=== PATIENT | male | born 1970 | race Caucasian/White ===

== ENCOUNTER 2020-05-18 19:31 | Emergency (ER) | payer BC ==
[~2020-05-18] VITALS: Ht 170.2 cm; Wt 83.5 kg
[2020-05-18 20:31] LABS: ABSOLUTE BASOPHILS 0.1 thou/uL (0.0-0.2); ABSOLUTE EOSINOPHILS 0.3 thou/uL (0.0-0.7); ABSOLUTE LYMPHOCYTES 1.8 thou/uL (0.8-5.3); ABSOLUTE MONOCYTES 0.8 thou/uL (0.0-1.2); ABSOLUTE NEUTROPHILS 6.6 thou/uL (1.6-8.1); BASOPHILS 0.8 %; EOSINOPHILS 3.2 %; HEMATOCRIT 40.1 % (42.0-52.0); HEMOGLOBIN 13.4 gm/dL (14.0-18.0); LYMPHOCYTES 18.7 %; MCH 28.9 pg (26.0-34.0); MCHC 33.4 g/dL (28.0-37.0); MCV 86.7 fL (80.0-100.0); MONOCYTES 8.4 %; NUCLEATED RBCS 0 /100WBC; PLATELET COUNT* 269 thou/uL (150-400); POLYS 68.9 %; RBC 4.62 mil/uL (4.50-6.00); RDW-CV 13.2 % (10.5-14.5); WBC 9.6 thou/uL (4.0-11.0)
[2020-05-18 20:38] LABS: CALCIUM 7.6 mg/dL (8.5-10.1); CREATININE 0.8 mg/dL (0.6-1.3); POTASSIUM 3.8 mmol/L (3.5-5.1)
[2020-05-18 20:41] LABS: APTT 26.6 Seconds (25.0-31.3); PROTIME 10.1 Seconds (9.20-11.50)
[2020-05-18 20:48] LABS: ALBUMIN 2.1 g/dL (3.4-5.0); TOTAL BILIRUBIN 0.3 mg/dL (<0.1-1.0); TOTAL PROTEIN 5.5 g/dL (6.4-8.2)
[2020-05-18 20:53] LABS: URINE BILIRUBIN NEGATIVE (Negative); URINE BLOOD 2+ (Negative); URINE CLARITY CLEAR; URINE COLOR YELLOW; URINE GLUCOSE-RANDOM NEGATIVE (Negative); URINE KETONES NEGATIVE (Negative); URINE LEUKOCYTES-REFLEX NEGATIVE (Negative); URINE NITRITE-REFLEX NEGATIVE (Negative); URINE PROTEIN 3+ (Negative); URINE SPECIFIC GRAVITY >= 1.030 (1.005-1.030); URINE UROBILINOGEN 0.2 E.U./dl (0.2-1.0)
[2020-05-18 21:03] LABS: CRYSTALS None Seen /LPF (None Seen); HYALINE CASTS >10 Many /LPF (None Seen); MUCUS None Seen strn/LPF (None Seen); SQUAMOUS 0-3 Few /LPF (0-3)
[2020-05-18 21:04] LABS: BACTERIA-REFLEX 1-9 Few /HPF (None Seen); URINE RBC 0-2 Rare /HPF (0-2); URINE WBC-REFLEX 0-5 Rare /HPF (0-5)
[2020-05-18 23:25] VITALS: BP 168/72
--- NOTE | 2020-05-19 17:54 | EKG ---
[place] [address] ELECTROCARDIOGRAM REPORT Name: GABEJOSEGena IRWIN Room: [facility]#: [id number] Admission: 05/18/20 Attend Phys: Discharge: 05/18/20 Date of : 70 Date of Service: 05/18/202013 Report #: [id number] THIS REPORT FOR: //name// [facility] ED Test Date: 2020-05-18 Test Time: 20:14:13 Pat Name: JOSE BERNAL Department: Room: Gender: [employer]: SIVA : 1970 Requested By: Rivera Jiang Order Number: [id number] MD: Javier Mccray Measurements Intervals [place] Rate: 60 P: 54 KS: 169 QRS: 53 QRSD: 92 T: 34 QT: 421 QTc: 421 Interpretive Statements Sinus rhythm No previous ECG available for comparison Electronically Signed On 05-19-2020 17:54:07 CDT by Javier Mccray [email or web address] <ELECTRONICALLY SIGNED> By: Javier Mccray MD, [facility] 05/19/20 1754 13 13 Javier Mccray MD, FACC /EPI
== END 2020-05-18 23:25 | disposition home or self-care (01) ==
LOC: M.ERS 19:31
PROVIDERS: Family Medicine
DX: R60.0 Localized edema (principal); R22.43 Localized swelling, mass and lump, lower limb, bilateral